=== PATIENT | female | born 1960 | race African-American/Black ===

== ENCOUNTER → 2020-12-17 | Outpatient (CLI) | payer OTHER ==
[~2020-12-17] MED LIST: ACCUNEB SO1.25 MG/1 INH; NORCO 5-325 TA1 EACH PO; XANAX 0.5 MG0.5 M1 PO
--- NOTE | 2020-12-17 13:18 | 2DMMODE ---
[facility] [place] [address] 2 D/M-MODE ECHOCARDIOGRAM Name: ION DOHERTY Room #: REG [facility]#: [id number] Admission: 12/17/20 Attend Phys: Buzz Dickens MD Discharge: Date of : 64 Report #: [id number] THIS REPORT FOR: cc: JORDAN BONDS MD, RADHIKA MD Park, Jin S. MD ~ APPROVED REPORT Study performed: 12/17/2020 11:49:14 EXAM: Comprehensive 2D, Doppler, and color-flow Echocardiogram Patient Location: Out-Patient Status: routine BSA: 1.74 HR: 89 bpm BP: 132/84 mmHg Rhythm: NSR Other Information Study Quality: Good Indications Colon Cancer. Chemo. 2D Dimensions RVDd: 30.55 mm IVSd: 10.00 (7-11mm) LVOT Diam: 19.14 (18-24mm) LVDd: 31.80 mm PWd: 9.69 (7-11mm) LVDs: 22.22 (25-40mm) Left Atrium: 27.25 (27-40mm) Aortic Root: 26.39 mm Volumes Left Atrial Volume (Systole) Single Plane 4CH: 19.63 mL Single Plane 2CH: 25.45 mL LA ESV Index: 14.00 mL/m2 Aortic Valve AoV Peak Cuong.: 1.44 m/s AO Peak Gr.: 8.32 mmHg LVOT Max P.97 mmHg LVOT Max V: 1.00 m/s SAMANTA Vmax: 1.[address] [facility] [address] [place] [address] 2 D/M-MODE ECHOCARDIOGRAM Name: ION DOHERTY Room #: REG [facility]#: [id number] Admission: 12/17/20 Attend Phys: Lisa Villalba Discharge: Date of : 64 Report #: [id number] Mitral Valve E/A Ratio: 0.7 MV Decel. Time: 227.49 ms MV E Max Cuong.: 0.52 m/s MV A Cuong.: 0.77 m/s MV PHT: 65.97 ms IVRT: 79.58 ms Pulmonary Valve PV Peak Cuong.: 0.95 m/s PV Peak Gr.: 3.61 mmHg Pulmonary Vein P Vein S: 0.53 m/s P Vein D: 0.36 m/s P Vein S/D Ratio: 1.47 Tricuspid Valve TR Peak Cuong.: 2.26 m/s RAP Estimate: 5.00 mmHg TR Peak Gr.: 20.35 mmHg PA Pressure: 25.00 mmHg Left Ventricle The left ventricle is normal size. There is normal LV segmental wall motion. There is normal left ventricular wall thickness. Left ventricular systolic function is normal. LVEF is 60-65%. Mild diastolic dysfunction is present (impaired relaxation pattern). Right Ventricle The right ventricle is normal size. The right ventricular systolic function is normal. Atria The left atrium size is normal. The right atrium size is normal. Aortic Valve The aortic valve is normal in structure. No aortic regurgitation is present. There is no aortic valvular stenosis. Mitral Valve The mitral valve is normal in structure. There is no mitral valve regurgitation noted. No evidence of mitral valve stenosis. Tricuspid Valve [facility] [address] [place] [address] 2 D/M-MODE ECHOCARDIOGRAM Name: BESSYIONAngy BUSTAMANTE Room #: [facility].#: [id number] Admission: 12/17/20 Attend Phys: Lisa Villalba Discharge: Date of : 64 Report #: [id number] The tricuspid valve is normal in structure. Mild tricuspid regurgitation. Estimated PAP is 25mmHg. Pulmonic Valve The pulmonary valve is normal in structure. Mild pulmonic regurgitation. Great Vessels The aortic root is normal in size. The ascending aorta is normal in size. IVC is normal in size and collapses >50% with inspiration. Pericardium There is no pericardial effusion. <Conclusion> The left ventricle is normal size. There is normal left ventricular wall thickness. Left ventricular systolic function is normal. Mild diastolic dysfunction is present (impaired relaxation pattern). The right ventricle is normal size. The left atrium size is normal. The aortic valve is normal in structure. There is no mitral valve regurgitation noted. Mild tricuspid regurgitation. <ELECTRONICALLY SIGNED> By: Travis Taylor MD 12/17/20 1318 17 Travis Taylor MD /INF
--- NOTE | 2020-12-17 13:51 | NUR ---
PT CAME TO THE [facility]ION [facility] TO HAVE PORT ACCESSED FOR HER CT SCAN. PT IS VERY ANXIOUS ABOUT NEEDLE STICKS. RIGHT POWER PORT ACCESSED WITHOUT DIFFICULTY, BLOOD RETURN OBTAINED. ESCORTED TO CT THEN PT RETURNED FOR PORT TO BE FLUSHED. PORT LEFT ACCESSED PER REQUEST OF PATIENT AND WITH APPROVAL FROM HER TEAM A [facility] WHERE SHE NEEDS A CENTRAL LAB DRAW--SPOKE WITH COREY IN THE INF[facility]ION CLINIC WHO SAID THEY WOULD DRAW BLOOD THEN DEACCESS TOMORROW. WALKED PT OUT UPON DISMISSAL.
== END ==
LOC: CV 07:56
PROVIDERS: ATTEND Internal Medicine Hematology & Oncology
DX: Z00.6 Encounter for examination for normal comparison and control in clinical research program (principal); R91.8 Other nonspecific abnormal finding of lung field; I08.8 Other rheumatic multiple valve diseases; K76.89 Other specified diseases of liver; N28.1 Cyst of kidney, acquired

== ENCOUNTER → 2021-02-18 | Outpatient (CLI) | payer OTHER | LOC: CAT 10:53 | PROVIDERS: ATTEND Internal Medicine Hematology & Oncology | DX: C78.00 Secondary malignant neoplasm of unspecified lung (principal); C18.9 Malignant neoplasm of colon, unspecified; N28.1 Cyst of kidney, acquired; R91.8 Other nonspecific abnormal finding of lung field; K76.89 Other specified diseases of liver ==